=== PATIENT | male | born 1940 | race Caucasian/White ===

== ENCOUNTER → 2018-11-10 | Outpatient (CLI) | payer MEDICARE, OTHER ==
[~2018-11-10] MED LIST: ASPI81CH44 PO; ATOR40TA75 PO; CLOP75TA2 PO; FERR325T88 PO; LOSA25TA14 PO; METO25TA4 PO; MULTCAP PO; OMEP-218 PO; VITAD1000T PO
--- NOTE | 2018-11-15 14:38 | REP ---
CT CHEST WITHOUT CONTRAST: HISTORY: Solitary pulmonary nodule. Comparison CT studies have been retrieved from [facility] dated March 29, 2017 and October 26, 2017. Comparison PET-CT study is from July 19, 2018. CT FINDINGS: Preliminary digital gameroom technician radiographs are unremarkable. A loop recorder is visible in the left precordial region. On axial CT images, there is a stable right posterior thyroid nodule projecting posterior and inferior to the right thyroid lobe at the thoracic inlet. This measures 2.3 cm. It is unchanged from both prior CT studies. There is no evidence of mediastinal lymphadenopathy. Scattered normal-sized lymph nodes are seen. There is a percutaneously implanted device in the left atrial appendage. Vascular calcification is noted along the course of the coronary arteries. No pleural or significant pericardial effusion is seen. There are clips in the gallbladder fossa. No adrenal lesion is observed. There are bilateral renal lesions consistent with cysts. Visualized upper abdominal structures are otherwise unremarkable. Pancolonic diverticulosis is noted incidentally. No bony destructive lesion is appreciated. The lung window settings demonstrate an enlarging pleural-based nodule in the right lower lobe medially, 12 mm in greatest diameter. On October 26, 2017 study done 1 year ago, this was 5 mm. The growth is considered suspicious. No other pulmonary nodule is appreciated. There is a tiny granulomatous calcification in the periphery of the left lower lobe. The ascending aorta remains somewhat dilated as previously noted measuring 4.8 cm in AP dimension. IMPRESSION: Enlarging soft tissue nodule in the right lower lobe suspicious for primary lung neoplasm. Consider repeat PET-CT and histologic sampling or removal. Electronically Signed by Alvarado Osborne MD 11/15/2018 04:03 P
== END ==
LOC: M RAD 17:40
PROVIDERS: ATTEND Internal Medicine Pulmonary Disease
DX: R91.1 Solitary pulmonary nodule (principal); I77.810 Thoracic aortic ectasia; J84.10 Pulmonary fibrosis, unspecified

== ENCOUNTER 2019-01-04 07:37 | Day surgery (SDC) | payer MEDICARE, OTHER ==
[~2019-01-04] VITALS: Ht 177.8 cm; Wt 92.0 kg
[~2019-01-04 07:37] MED LIST changes: +FURO20TA2 PO; +GEMF600T5 PO; +LIDOCAINE 1% MDV 20ML VIAL SQ PRN; +LR 1,000 ML IV ONE; +NORCO, ANEXSIA 5/325MG TABLET (HYDROcodone/ACETAMINOPHEN) As Ordered ONE; +ONDANSETRON 4MG/2ML VIAL (J2405) As Ordered ONE; +RAPA8CAP4 PO
[2019-01-04] MEDS ORDERED: SUGAMMADEX SODIUM 500 MG/5 ML VIAL (BRIDION) As Ordered ONE (08:01)
[2019-01-04] MEDS ORDERED: ONDANSETRON 4MG/2ML VIAL (J2405) As Ordered ONE (08:01)
[2019-01-04] MEDS ORDERED: dexameTHASONE 4 MG/ML 1ML VIAL (J1100) As Ordered ONE (08:01)
[2019-01-04] MEDS ORDERED: LIDOCAINE 2% INJ 100 MG/5 ML SDV (FOR ANES.) As Ordered ONE (08:01)
[2019-01-04] MEDS ORDERED: ROCURONIUM BROMIDE 50 MG/5 ML VIAL As Ordered ONE (08:01)
[2019-01-04] MEDS ORDERED: PROPOFOL 200 MG/20 ML VIAL As Ordered ONE (08:01)
[2019-01-04] MEDS ORDERED: fentaNYL 250 MCG/5 ML INJECTION (J3010) As Ordered ONE (08:02)
[2019-01-04] MEDS ORDERED: MIDAZOLAM INJ 2 MG/2 ML VIAL (J2250) As Ordered ONE (08:02)
[2019-01-04] MEDS ORDERED: THROMBIN SOLN 5,000 UNITS VIAL As Ordered ONE (08:41)
[2019-01-04] MEDS ORDERED: CETACAINE SPRAY 5GM As Ordered ONE (08:42)
[2019-01-04] MEDS ORDERED: EPINEPHrine 1MG/10ML SYRINGE 1.5IN As Ordered ONE (08:42)
[2019-01-04] MEDS ORDERED: LIDOCAINE VISCOUS 2% SOLN 15ML UDC As Ordered ONE (08:42)
[2019-01-04] MEDS ORDERED: LIDOCAINE 1% SDV INJ 30 ML VIAL As Ordered ONE (08:57)
[2019-01-04] MEDS ORDERED: ePHEDrine SULFATE 25 MG/5 ML(5MG/ML) SYRINGE As Ordered ONE (09:59)
[2019-01-04] MEDS ORDERED: NORCO, ANEXSIA 5/325MG TABLET (HYDROcodone/ACETAMINOPHEN) PO PRN (10:30)
[2019-01-04] MEDS ORDERED: ONDANSETRON 4MG/2ML VIAL (J2405) IV PRN (10:30)
[2019-01-04] MEDS ORDERED: LR 1,000 ML IV SCH (10:30)
[2019-01-04] MEDS ORDERED: fentaNYL 100 MCG/2 ML INJECTION (J3010) IV PRN (10:30)
--- NOTE | 2019-01-04 10:45 | ROOR ---
Patient Name: Tone Hallman Procedure Date: 01/04/2019 9:02 AM Date of : 1940 Admit Type: Outpatient Age: 78 Note Status: Finalized Attending MD: Ashely Coreas MD Procedure: Bronchoscopy Indications: Right lower lobe nodule Providers: Ashely Coreas MD (Doctor) Referring MD: 1. No Referring Physician 1. No Referring Physician, Admin. (Referring MD) Requesting Physician: Medicines: General Anesthesia, Cetacaine topical Complications: No immediate complications. Estimated blood loss: Minimal Procedure: Pre-Anesthesia Assessment: - Prior to the procedure, a History and Physical was performed, and patient medications and allergies were reviewed. The patient's tolerance of previous anesthesia was also reviewed. The risks and benefits of the procedure and the sedation options and risks were discussed with the patient. All questions were answered, and informed consent was obtained. Prior Anticoagulants: The patient has taken Plavix (clopidogrel), last dose was 7 days prior to procedure. ASA Grade Assessment: III - A patient with severe systemic disease. After reviewing the risks and benefits, the patient was deemed in satisfactory condition to undergo the procedure. The Bronchoscope was introduced through the mouth, via the endotracheal tube (the patient was intubated for the procedure) and advanced to the tracheobronchial tree of both lungs. The procedure was accomplished without difficulty. The patient tolerated the procedure well. Findings: The endotracheal tube is in good position. The visualized portion of the trachea is of normal caliber. The elizabeth is sharp. The tracheobronchial tree was examined to at least the first subsegmental level. Bronchial mucosa and anatomy are normal; there are no endobronchial lesions, and scant yellow thick secretions. Electromagnetic navigation bronchoscopy utilizing the [employer] system with iLogic upgrade was performed. The CT scan was used for planning purposes. A virtual bronchoscopic image was generated using the planning software and the elizabeth, left main bronchus elizabeth, left lower lobe basilar segment, right upper lobe, right middle lobe and right lower lobe basilar segment registration points were marked on the virtual image. The target in the posterior basal segment of the right lower lobe was marked. A nodule approx 1.2 cm in size was found and a pathway was created. After a complete airway exam, the locatable guide/extended working channel was inserted and an automatic registration was performed by advancing the scope through the elizabeth, left main bronchus elizabeth, left lower lobe basilar segment, right upper lobe, right middle lobe and right lower lobe basilar segment. The navigation phase was then begun to locate the target lesion(s). Positioning off-center (in relation to the lesion) was confirmed using the Olympus radial probe US catheter. The locatable guide was removed from the extended working channel. Fluoroscopy guided brushings of a nodule were obtained in the posterior basal segment of the right lower lobe with a cytology brush and sent for routine cytology. Transbronchial brushing technique was selected because the sampling site was not visible endoscopically. Transbronchial needle aspirations of a nodule were performed in the posterior basal segment of the right lower lobe using a GenCut needle and sent for routine cytology. The procedure was guided by fluoroscopy. Transbronchial needle aspiration technique was selected because the sampling site was not visible endoscopically. Transbronchial biopsies of a nodule were performed in the posterior basal segment of the right lower lobe using forceps and sent for routine cytology. The procedure was guided by fluoroscopy. Transbronchial biopsy technique was selected because the sampling site was not visible endoscopically. Rapid On-Site Evaluation (BRIONNA): Preliminary cytology of the lesion in the posterior basal segment of the right lower lobe suggested the cellularity of the specimen was adequate. Bronchoalveolar lavage was performed in the RLL posterior basal segment (B10) of the lung and sent for cell count, bacterial culture, viral smears & culture, and fungal & AFB analysis and cytology. The return was blood-tinged and cloudy. Mucous plugs were present in the return fluid. An endobronchial ultrasound endoscope was utilized in order to better characterize the lymph nodes in the right paratracheal area, in the subcarinal area and in the right hilum. There were no enlarged lymph nodes in the right paratracheal and right hilar region. In the subcarinal region there was a borderline lymph node approx 1cm in size appeared fat containing. There were no fine needle aspirations performed. Impression: - Right lower lobe nodule - The airway examination was normal. - Electromagnetic navigation bronchoscopy was performed. - Brushings were obtained. - A transbronchial needle aspiration was performed. - Transbronchial lung biopsies were performed. - Rapid On-Site Evaluation (BRIONNA): Preliminary cytology of the lesion in the posterior basal segment of the right lower lobe suggested the cellularity of the specimen was adequate. - Bronchoalveolar lavage was performed. Recommendation: - Await test results. - Follow up with bronchoscopist as previously scheduled. Attending Participation: I personally performed the entire procedure. Ashely Coreas MD 01/04/2019 10:44:40 AM Number of Addenda: 0 Note Initiated On: 01/04/2019 9:02 AM
[2019-01-04 11:04] LABS: APPEARANCE TURBID (CLEAR); COLOR PINK (COLORLESS); SOURCE LEFT LOWER LOBE
--- NOTE | 2019-01-04 11:22 | REP ---
Oral chest x-ray: Single view. History: Post bronch. Rule out pneumothorax. Findings: The lungs are exposed at a relatively low level of inspiration. A loop recorder is visible in the precordial soft tissues to the left of midline. There is no evidence of pneumothorax on either side. There is some mild bibasilar discoid atelectatic change. This is a little more prominent on the left than the right. Electronically Signed by Alvarado Osborne MD 01/04/2019 11:14 A
[2019-01-04 11:26] VITALS: BP 164/74
[2019-01-04 12:50] LABS: MONOCYTES/MACROPHAGES, BAL 2 %
== END 2019-01-04 11:32 | disposition home or self-care (01) ==
LOC: M SDC 07:37
PROVIDERS: ATTEND Internal Medicine Pulmonary Disease
DX: R91.1 Solitary pulmonary nodule (principal); J43.9 Emphysema, unspecified; I12.9 Hypertensive chronic kidney disease with stage 1 through stage 4 chronic kidney disease, or unspecified chronic kidney disease; E78.49 Other hyperlipidemia; I25.10 Atherosclerotic heart disease of native coronary artery without angina pectoris; I48.91 Unspecified atrial fibrillation; N40.0 Benign prostatic hyperplasia without lower urinary tract symptoms; N18.9 Chronic kidney disease, unspecified; K21.9 Gastro-esophageal reflux disease without esophagitis; D64.9 Anemia, unspecified; Z79.899 Other long term (current) drug therapy; Z91.030 Bee allergy status; Z87.891 Personal history of nicotine dependence; Z98.61 Coronary angioplasty status; Z79.02 Long term (current) use of antithrombotics/antiplatelets
CPT/HCPCS: 31623; 31624; 31627; 31628; 31629; 71045; 76000; 87070; 87102; 87116; 87205; 87206; 88104; 88108; 88173; 88305; 88313; 89051; J1100; J2250; J2405; J3010

== ENCOUNTER → 2021-12-14 | Outpatient (CLI) | payer MEDICARE, OTHER ==
[~2021-12-14] MED LIST changes: +ASPI1CHW3 PO; -ASPI81CH44 PO; +CHOL100029 PO; -LIDOCAINE 1% MDV 20ML VIAL SQ PRN; +LOSA25TA13 PO; -LOSA25TA14 PO; -LR 1,000 ML IV ONE; -NORCO, ANEXSIA 5/325MG TABLET (HYDROcodone/ACETAMINOPHEN) As Ordered ONE; +OMEP-173 PO; -OMEP-218 PO; -ONDANSETRON 4MG/2ML VIAL (J2405) As Ordered ONE; -VITAD1000T PO
[2021-12-14 10:09] LABS: PLATELET COUNT, AUTOMATED 247 10^3/uL (150-450)
[2021-12-14 10:35] LABS: INR 1.05; PARTIAL THROMBOPLASTIN TIME 34.1 SECONDS (25.9-37.0); PROTHROMBIN TIME 14.1 SECONDS (12.7-14.5)
== END ==
LOC: M LAB 09:24
PROVIDERS: ATTEND Internal Medicine Pulmonary Disease
DX: Z01.818 Encounter for other preprocedural examination (principal); Z79.01 Long term (current) use of anticoagulants

== ENCOUNTER → 2021-12-24 | Outpatient (CLI) | payer MEDICARE | LOC: M RAD 14:05 | PROVIDERS: ATTEND Internal Medicine Pulmonary Disease | DX: R91.8 Other nonspecific abnormal finding of lung field (principal) ==

== ENCOUNTER 2022-02-03 13:15 | Day surgery (SDC) | payer MEDICARE ==
[~2022-02-03] VITALS: Ht 177.8 cm; Wt 89.4 kg
[~2022-02-03 13:15] MED LIST changes: +D-101000 PO; +FERR325T3 PO; +LOPI600T PO; +MULT-90 PO
[2022-02-03] MEDS ORDERED: LR 1,000 ML IV SCH ×2 (13:25→17:45)
[2022-02-03] MEDS ORDERED: dexameTHASONE 4 MG/ML 1ML VIAL (J1100 PER 1MG) As Ordered ONE (14:50)
[2022-02-03] MEDS ORDERED: LIDOCAINE 2% INJ 100 MG/5 ML SYRINGE As Ordered ONE (14:50)
[2022-02-03] MEDS ORDERED: ROCURONIUM BROMIDE 50 MG/5 ML VIAL As Ordered ONE (14:50)
[2022-02-03] MEDS ORDERED: propofoL 200 MG/20 ML VIAL As Ordered ONE (14:50)
[2022-02-03] MEDS ORDERED: fentaNYL 100 MCG/2 ML INJECTION As Ordered ONE (14:50)
[2022-02-03] MEDS ORDERED: ONDANSETRON 4MG 2ML VIAL As Ordered ONE (14:51)
[2022-02-03] MEDS ORDERED: LIDOCAINE 4% INJ 5ML AMP NEB ONE (15:50)
[2022-02-03] MEDS ORDERED: ALBUTEROL SULFATE 2.5 MG/0.5 ML INH NEB SOLN INH ONE (15:50)
[2022-02-03] MEDS ORDERED: ETOMIDATE INJ 20MG/10ML VIAL As Ordered ONE (16:00)
[2022-02-03] MEDS ORDERED: THROMBIN SOLN 5,000 UNITS VIAL As Ordered ONE (16:02)
[2022-02-03] MEDS ORDERED: CETACAINE SPRAY 5GM As Ordered ONE ×2 (16:02→16:31)
[2022-02-03] MEDS ORDERED: EPINEPHrine 1MG/10ML SYRINGE 1.5IN As Ordered ONE (16:02)
[2022-02-03] MEDS ORDERED: SUGAMMADEX SODIUM 500 MG/5 ML VIAL (BRIDION) As Ordered ONE (16:46)
[2022-02-03] MEDS ORDERED: ePHEDrine SULFATE 25 MG/5 ML(5MG/ML) SYRINGE As Ordered ONE (16:47)
[2022-02-03] MEDS ORDERED: fentaNYL 100 MCG/2 ML INJECTION IV PRN (17:45)
[2022-02-03] MEDS ORDERED: MORPHINE 2 MG/ML 1ML VIAL IV PRN (17:45)
[2022-02-03] MEDS ORDERED: ONDANSETRON 4MG 2ML VIAL IV PRN (17:45)
[2022-02-03] MEDS ORDERED: oxyCODONE 5MG TAB PO PRN (17:45)
[2022-02-03 18:35] VITALS: BP 163/73
== END 2022-02-03 19:09 | disposition home or self-care (01) ==
LOC: M SDC 13:15
PROVIDERS: ATTEND Internal Medicine Pulmonary Disease
DX: C34.31 Malignant neoplasm of lower lobe, right bronchus or lung (principal); C77.1 Secondary and unspecified malignant neoplasm of intrathoracic lymph nodes; R59.0 Localized enlarged lymph nodes; I11.9 Hypertensive heart disease without heart failure; I48.91 Unspecified atrial fibrillation; I25.10 Atherosclerotic heart disease of native coronary artery without angina pectoris; I71.4 Abdominal aortic aneurysm, without rupture; K21.9 Gastro-esophageal reflux disease without esophagitis; E78.5 Hyperlipidemia, unspecified; Z79.899 Other long term (current) drug therapy; Z79.01 Long term (current) use of anticoagulants; Z79.82 Long term (current) use of aspirin
CPT/HCPCS: 31623; 31624; 31626; 31627; 31628; 31629; 31652; 31654; 71045; 76000; 88104; 88108; 88173; 88305; 88313; J0171; J1100; J2405; J3010